=== PATIENT | female | born 1955 | race Caucasian/White ===

== ENCOUNTER 2018-06-09 07:38 | Day surgery (SDC) | END 2018-06-09 14:20 | disposition home or self-care (01) ==

== ENCOUNTER 2019-04-26 10:11 | Day surgery (SDC) | payer BC ==
[~2019-04-26] VITALS: Ht 152.4 cm; Wt 59.1 kg
[~2019-04-26 10:11] MED LIST: ALLO100T PO; METH10TA2 PO
[2019-04-26 10:34] VITALS: Ht 152.4 cm; Wt 59.1 kg
--- NOTE | 2019-04-26 11:10 | PREAC ---
Date/Time of Note Date/Time of Note DATE: 04/26/19 TIME: 11:07 Anesthesia Eval and Record Evaluation Time Pre-Procedure Interview DATE: 04/26/19 TIME: 11:07 Age 63 Sex female NPO: 8 hrs Preoperative diagnosis Screening Planned procedure Colonoscopy Past Medical History Past Medical History: Includes Heme: Other (Hx of Lymphoma last chemo was in November) Infection(s): Hep C, Other Recreational drugs: Heroin (last use was three years ago), Other (Hx of drug abuse, on methadone 65mg/day, ) Surgery & Anesthesia Issues No known issue Meds Anticoagulation: No Beta Paradise within 24 hr: No Reason Beta Paradise not given: Pt. not on B-[place] Reported Medications Methadone Hcl* (Methadone*) 10 Mg Tab, 45 MG PO DAILY, TAB 06/09/18 Discontinued Reported Medications Allopurinol* (Allopurinol*) 100 Mg Tablet, 100 MG PO DAILY, TAB 06/09/18 Meds reviewed: Yes Allergies Coded Allergies: No Known Allergies (Verified Allergy, Unknown, 06/09/18) Allergies Reviewed: Yes Labs/Studies Labs Reviewed: Reviewed by anesthesiologist test: N/A Studies: ECG (n/a), CXR (n/a) Pre-procedure Exam Airway: Adequate mouth opening, Adequate thyromental dist Mallampati: Mallampati II Teeth: Normal Lung: Normal Heart: Normal ASA Physical Status ASA physical status: 3 Emergency: None Planned Anesthetic General/MAC: MAC Planned Pain Management Parenteral pain med Pre-operative Attestations Prior to commencing anesthesia and surgery, the patient was re-evaluated, there was verification of: *The patient's identity *The results of appropriate recent lab work and preoperative vital signs *The above evaluation not changing prior to induction *Anesthetic plan, risk benefits, alternative and complications discussed with patient/family; questions answered; patient/family understands, accepts and wishes to proceed. LANI ARREDONDO MD Apr 26, 2019 11:09
[2019-04-26] MEDS ORDERED: PROPOFOL 60 ML ONE (11:50)
--- NOTE | 2019-04-26 11:53 | PAC ---
Date/Time of Note Date/Time of Note DATE: 04/26/19 TIME: 11:53 Post-Anesthesia Notes Post-Anesthesia Note Last documented vital signs T: 98.0 Activity: WNL Respiratory function: WNL Cardiovascular function: WNL Mental status: Baseline Pain reasonably controlled: Yes Hydration appropriate: Yes Nausea/Vomiting absent: Yes LNAI ARREDONDO MD Apr 26, 2019 11:53
== END 2019-04-26 12:54 | disposition home or self-care (01) ==
LOC: GIL 10:11
PROVIDERS: ATTEND Internal Medicine Gastroenterology
DX: Z12.11 Encounter for screening for malignant neoplasm of colon (principal); D12.5 Benign neoplasm of sigmoid colon; K64.8 Other hemorrhoids
CPT/HCPCS: 45380; 88305; Z7610